=== PATIENT | male | born 1965 | race Caucasian/White ===

== ENCOUNTER 2017-04-05 11:02 | Observation (INO) | payer BC ==
[2017-03-31 10:10] LABS: HEMOGLOBIN 17.5 g/dL (13.6-17.8)
[2017-03-31 10:12] LABS: HEMATOCRIT 50.5 % (40.0-51.0)
[2017-03-31 10:17] LABS: ASCORBIC ACID (UR NOT ORDER) NEG (NEG); BILIRUBIN, URINE NEGATIVE (NEG); KETONE, URINE NEGATIVE (NEG); LEUKOCYTE ESTERASE(NOT OR MOD (NEG); WBC (NOT ORDERED) (RFLEX) 31 (0-5)
[~2017-04-05] VITALS: Ht 188 cm; Wt 100.2 kg
--- NOTE | ~2017-04-05 | OP ---
Record Of Operation [facility] [address] [place]. [address] NAME: DIAMANTE RAHMAN : 65 STATUS : ADM Evette PAT#: [id number] AGE: 51 ADM/REG DATE : 04/05/17 MR#: [id number] REPORT SERV DATE: 04/05/17 DICTATED BY: TRE BALLARD DATE: 04/05/17 REPORT STATUS : Draft TRANSCRIBED BY: MODL DATE: 04/05/17 DATE OF PROCEDURE: 04/05/2017 TITLE OF OPERATION: 1. Antegrade nephrostogram. 2. Dilation of percutaneous tract into the left kidney. 3. Left percutaneous nephrolithotomy greater than 2 cm. 4. Antegrade ureteroscopy. 5. Placement of antegrade ureteral stent. 6. Placement of left nephrostomy tube. PREOPERATIVE DIAGNOSIS: Left renal stone approximately 4 cm in size. POSTOPERATIVE DIAGNOSIS: Left renal stone approximately 4 cm in size. INDICATIONS: Mr. Shaw is a 51-year-old male with a left renal stone that is 3 cm; he also a 1 cm lower pole stone. He is here for percutaneous nephrolithotomy. ANESTHESIA: General. COMPLICATIONS: None. IMPLANTS: 1. A 16-Moroccan Esquivel catheter. 2. A 6 x 26 left ureteral stent. 3. A 16-Moroccan red rubber nephrostomy tube. NARRATIVE: The patient was identified in the Interventional Radiology suite. Ancef was given for preoperative antibiotics. General anesthesia was induced. A left nephrostomy tube was placed into the lower pole under image guidance. Please see Interventional Radiology's procedural note for these details. The patient was then transferred to the operative suite while under general anesthesia. He was placed in the prone position and secured to the bed with pads and tape. He was prepped and draped in a sterile fashion. An antegrade nephrostogram was shot, which showed a large stone in the renal pelvis and a 1 cm stone in the lower pole. The pre-placed nephroureteral stent was cannulated with a Superstiff wire under fluoroscopic guidance and the nephrostomy tube was removed. A Jose Maria catheter was placed into the proximal ureter and a Sensor wire was replaced with a safety wire. A small skin incision was made. A 30-Moroccan NephroMax balloon was placed over the wire into the lower pole of the kidney under fluoroscopic guidance. It was inflated to 15 mmHg. A working sheath was placed. The balloon was removed. A rigid nephroscope was used to inspect the kidney. There was about 1 cm worth of stone in the lower pole which was removed with an ultrasonic Lithotripter. A 3 cm stone was encountered in the renal pelvis. It was ground into small pieces and evacuated with the ultrasonic Lithotripter. After no stones were left, I placed a 6 x 26 ureteral stent in an antegrade fashion. The proximal coil was in the renal pelvis, the distal coil was in the bladder under fluoroscopic guidance. The scope was removed. A flexible cystoscope was used to inspect all major and Record Of Operation [address] [id number] NAME: DIAMANTE RAHMAN : 65 STATUS : ADM Evette PAT#: [id number] AGE: 51 ADM/REG DATE : 04/05/17 MR#: [id number] REPORT SERV DATE: 04/05/17 DICTATED BY: TRE BALLARD DATE: 04/05/17 REPORT STATUS : Draft TRANSCRIBED BY: MODL DATE: 04/05/17 minor calices. There was no residual stone. The flexible ureteroscope was placed into the proximal mid ureter. There were no stone fragments in the ureter either. The scopes were removed. A 16-Moroccan red rubber catheter was placed through the access sheath. An antegrade nephrostogram was again shot. There was no extravasation. The sheath was removed. The nephrostomy tube was sutured in place with a 2-0 silk suture. The skin was closed with a 4-0 chromic suture. Pressure was held. A urostomy bag was placed for dressing. The patient was then awoken from anesthesia and transferred to the recovery room in stable condition. There were no complications. GINO/CARLOS ENRIQUE Tre Ballard MD / [id number] CC: Tre Ballard MD
[~2017-04-05 11:02] MED LIST: *DENIES
[2017-04-05 12:17] LABS: INTERNATIONAL NORMAL RATI 1.1 UNITS (-); PARTIAL THROMBO TIME 29.2 SEC (22.5-37.2)
[2017-04-05 16:06] LABS: BASOPHILS 0.2 %; BASOPHILS ABSOLUTE 0.01 10/3/uL (0.0-0.16); EOSINOPHILS 2.4 %; EOSINOPHILS ABSOLUTE 0.13 10/3/uL (0.0-0.53); HEMATOCRIT 46.7 % (40.0-51.0); HEMOGLOBIN 16.2 g/dL (13.6-17.8); IMMATURE GRANULOCYTES 0.2 %; IMMATURE GRANULOCYTES ABSOLUTE 0.01 10/3/uL (0.0-0.11); LYMPHOCYTES 25.6 %; LYMPHOCYTES ABSOLUTE 1.38 10/3/uL (0.67-4.30); MEAN CORPUS HGB CONC 34.7 g/dL (32.0-36.0); MEAN CORPUSCULAR HEMOGLOB 31.2 pg (26.0-34.0); MEAN CORPUSCULAR VOLUME 89.8 fL (80-100); MEAN PLATELET VOLUME 9.6 fL (9.2-13.0); MONOCYTES 3.5 %; MONOCYTES ABSOLUTE 0.19 10/3/uL (0.21-1.20); NEUTROPHILS 68.1 %; NEUTROPHILS ABSOLUTE 3.67 10/3/uL (2.02-8.40); PLATELET COUNT 185 10/3/uL (150-400); RBC DISTRIBUTION WIDTH 12.4 % (12.0-16.0); WHITE BLOOD CELLS 5.4 10/3/uL (4.5-10.5)
[2017-04-05 16:09] LABS: MANUAL DIFF NO %
[2017-04-05 16:18] LABS: CALCIUM, SERUM 8.3 MG/DL (8.5-10.4); CHLORIDE, SERUM 104 MMOL/L (96-112); CO2 (CARBON DIOXIDE) 29 MMOL/L (24-34); GFR AFRICAN AMERICAN 81 ML/MIN (>=60); GFR NON AFRICAN AMERICAN 70 ML/MIN (>=60); GLUCOSE, SERUM 105 MG/DL (60-99); POTASSIUM, SERUM 3.5 MMOL/L (3.5-5.3); SODIUM, SERUM 140 MMOL/L (135-148)
[2017-04-05 16:20] LABS: BUN (BLOOD UREA NITROGEN) 10 MG/DL (6-23)
[2017-04-06 05:58] LABS: BASOPHILS 0 %; EOSINOPHILS 0 %; HEMATOCRIT 48.3 % (40.0-51.0); HEMOGLOBIN 16.5 g/dL (13.6-17.8); IMMATURE GRANULOCYTES 0.2 %; IMMATURE GRANULOCYTES ABSOLUTE 0.02 10/3/uL (0.0-0.11); LYMPHOCYTES 6.7 %; LYMPHOCYTES ABSOLUTE 0.71 10/3/uL (0.67-4.30); MEAN CORPUS HGB CONC 34.2 g/dL (32.0-36.0); MEAN CORPUSCULAR HEMOGLOB 30.8 pg (26.0-34.0); MEAN CORPUSCULAR VOLUME 90.3 fL (80-100); MEAN PLATELET VOLUME 9.8 fL (9.2-13.0); MONOCYTES 4.8 %; MONOCYTES ABSOLUTE 0.51 10/3/uL (0.21-1.20); NEUTROPHILS 88.3 %; NEUTROPHILS ABSOLUTE 9.35 10/3/uL (2.02-8.40); PLATELET COUNT 246 10/3/uL (150-400); RBC DISTRIBUTION WIDTH 12.3 % (12.0-16.0); RED CELL COUNT 5.35 10/6/uL (4.7-6.1); WHITE BLOOD CELLS 10.6 10/3/uL (4.5-10.5)
[2017-04-06 05:59] LABS: MANUAL DIFF NO %
[2017-04-06 06:04] LABS: BUN (BLOOD UREA NITROGEN) 11 MG/DL (6-23); CALCIUM, SERUM 8.8 MG/DL (8.5-10.4); CHLORIDE, SERUM 102 MMOL/L (96-112); CO2 (CARBON DIOXIDE) 27 MMOL/L (24-34); CREATININE 1.25 MG/DL (0.70-1.30); GFR AFRICAN AMERICAN 77 ML/MIN (>=60); GFR NON AFRICAN AMERICAN 66 ML/MIN (>=60); GLUCOSE, SERUM 124 MG/DL (60-99); POTASSIUM, SERUM 4.4 MMOL/L (3.5-5.3); SODIUM, SERUM 137 MMOL/L (135-148)
[2017-04-06] MEDS ORDERED: PCET PO (07:52)
[2017-04-06] MEDS ORDERED: DSS PO (07:52)
[2017-04-06] MEDS ORDERED: BACTRIM DS1 TAB PO (07:52)
[2017-04-10 13:14] LABS: SOURCE OF STONE Left Kidney (()); STONE COMPOSITION TWO DNR (())
== END 2017-04-06 11:00 | disposition home or self-care (01) ==
LOC: ENRESERVTM → ENRESERV → ENRESERVDT → CSSUOP 11:02 → IMGHOLD 11:02 → RADHOLD 11:45 → SDC/OF 12:47 → SSU1 12:47 → CSSUOP 13:00 → IMGHOLD 15:55 → SDC/OF 15:56 → 4SO 16:35
PROVIDERS: Urology
PROC: 0T9130Z Drainage of Left Kidney with Drainage Device, Percutaneous Approach (ICD-10-PCS; principal; 2017-04-05 14:45)
DX: Z01.818 Encounter for other preprocedural examination (principal); N20.0 Calculus of kidney; R00.1 Bradycardia, unspecified; R94.31 Abnormal electrocardiogram [ECG] [EKG]; R00.0 Tachycardia, unspecified; Z79.01 Long term (current) use of anticoagulants
CPT/HCPCS: 36415; 50395; 50433; 76000; 80048; 81001; 82365; 85014; 85018; 85025; 85610; 85730; 86850; 86900; 86901; 87086; 93005; 96374; 96375; 96376; A9270-GY; C1726; C1769; C1892; C1894; C2617; G0378; J0690; J1170; J2250; J2270; J2405; J2710; J3010; Q9967